=== PATIENT | male | born 1960 | race American Indian/Alaskan Native ===

== ENCOUNTER → 2023-04-27 16:02 | Outpatient (CLI) | payer OTHER, MEDICAID, SELFPAY ==
--- NOTE | 2023-04-27 16:05 | DI.RAD.S_ITS ---
PROCEDURE: XR KNEE LT 3V INDICATIONS: AP/lateral XR for osteoarthritis eval TECHNIQUE: 3 views of the knee were acquired. COMPARISON: None. FINDINGS: Bones: No fractures or dislocations. Moderate tricompartmental osteoarthritis is seen with joint space narrowing, subchondral sclerosis and marginal osteophyte formation more notably in medial femoral tibial compartment. No suspicious bony lesions. Soft tissues: Small suprapatellar joint effusion. No suspicious soft tissue calcifications. IMPRESSION: No acute left knee fracture or dislocation. Moderate tricompartmental osteoarthritis more notably in medial femoral tibial compartment. Small to moderate joint effusion. Dictated by: Garcia Tucker M.D. on 04/27/2023 at 17:31 Approved by: Garcia Tucker M.D. on 04/27/2023 at 17:32
== END ==
LOC: RAD 16:04
PROVIDERS: PCP Family Medicine; Referring Provider Family Medicine; Visit Provider Family Medicine
DX: M17.0 Bilateral primary osteoarthritis of knee (principal); M25.462 Effusion, left knee
CPT/HCPCS: 73562

== ENCOUNTER → 2023-06-15 08:27 | Outpatient (CLI) | payer OTHER, MEDICAID, SELFPAY ==
[2023-06-15 10:05] LABS: Add Manual Diff / Slide Review NO; Basophils Absolute Auto 0 /uL (0-100); Basophils Percent Auto 0.7 % (0-2); Eosinophils Absolute Auto 100 /uL (0-450); Hematocrit 42.8 % (41-53); Hemoglobin 14.7 g/dL (13.5-17.5); Lymphocytes Absolute Auto 800 /uL (1100-4500); Lymphocytes Percent Auto 23.4 % (25-40); Mean Corpuscular HGB Conc 34.4 % (30-36); Mean Corpuscular Hemoglobin 29.8 PG (26-34); Mean Corpuscular Volume 86.7 fL (80-100); Monocytes Absolute Auto 300 /uL (0-900); Neutrophils Absolute Auto 2200 /uL (1500-7000); Neutrophils Percent Auto 64.9 % (50-75); Platelet Count 270 X10^3/uL (150-400); Red Blood Cell Count 4.93 X10^6/uL (4.5-5.9); Red Cell Distribution Width 14.1 % (11.6-14.8); White Blood Cell Count 3.4 X10^3/uL (4.5-11.0)
[2023-06-15 10:19] LABS: Alanine Aminotransferase 13 IU/L (<50); Albumin 3.8 g/dL (3.5-5.0); Albumin Globulin Ratio 1.2 (1.0-2.8); Alkaline Phosphatase 75 U/L (38-126); Aspartate Aminotransferase 19 IU/L (17-59); BUN Creatinine Ratio 13.1 (6-22); Bilirubin Total 0.7 mg/dL (0.2-1.3); Blood Urea Nitrogen 18 mg/dL (9-20); Calcium 8.8 mg/dL (8.4-10.2); Carbon Dioxide 22 mmol/L (22-32); Chloride 109 mmol/L (98-107); Cholesterol 126 mg/dL (140-199); Estimated Glomerular Filt Rate 58 mL/min (>60); Globulin 3.2 g/dL (1.7-4.1); Glucose 90 mg/dL (80-110); HDL Cholesterol 49 mg/dL (40-60); HEMOLYSIS < 15 (0-50); LDL Cholesterol Calculated 64 mg/dL (<100); Potassium 4.8 mmol/L (3.4-5.1); Sodium 139 mmol/L (137-145); Triglycerides 65 mg/dL (35-150)
[2023-06-15 10:43] LABS: Prostate Specific Antigen Scrn 3.23 ng/mL (0.1-4.0)
[2023-06-15 19:47] LABS: HIV 1 & 2 Ab/Ag 4th Gen Combo NEGATIVE (NEGATIVE); Hep C Virus Ab w/Reflex Quant NEGATIVE s/c (NEGATIVE)
== END ==
PROVIDERS: PCP Family Medicine; Referring Provider Family Medicine; Visit Provider Family Medicine
DX: Z11.59 Encounter for screening for other viral diseases (principal); Z11.4 Encounter for screening for human immunodeficiency virus [HIV]; Z53.20 Procedure and treatment not carried out because of patient's decision for unspecified reasons; E87.8 Other disorders of electrolyte and fluid balance, not elsewhere classified; Z13.0 Encounter for screening for diseases of the blood and blood-forming organs and certain disorders involving the immune mechanism; Z12.5 Encounter for screening for malignant neoplasm of prostate
CPT/HCPCS: 36415; 80053; 80061; 85025; 86803; 87389; G0103

== ENCOUNTER → 2023-09-28 15:01 | Outpatient (CLI) | payer OTHER, MEDICAID, SELFPAY ==
[2023-09-28 15:24] LABS: Add Manual Diff / Slide Review NO; Basophils Absolute Auto 0 /uL (0-100); Basophils Percent Auto 0.6 % (0-2); Eosinophils Absolute Auto 100 /uL (0-450); Eosinophils Percent Auto 2.2 % (2-4); Hematocrit 43.4 % (41-53); Hemoglobin 14.8 g/dL (13.5-17.5); Lymphocytes Absolute Auto 1100 /uL (1100-4500); Lymphocytes Percent Auto 21.7 % (25-40); Mean Corpuscular Hemoglobin 28.5 PG (26-34); Mean Corpuscular Volume 83.7 fL (80-100); Monocytes Absolute Auto 500 /uL (0-900); Monocytes Percent Auto 10.4 % (3-14); Neutrophils Absolute Auto 3400 /uL (1500-7000); Neutrophils Percent Auto 65.1 % (50-75); Platelet Count 264 X10^3/uL (150-400); Red Blood Cell Count 5.18 X10^6/uL (4.5-5.9); Red Cell Distribution Width 14.7 % (11.6-14.8); White Blood Cell Count 5.3 X10^3/uL (4.5-11.0)
[2023-09-28 15:40] LABS: Alanine Aminotransferase 17 IU/L (<50); Albumin 3.6 g/dL (3.5-5.0); Albumin Globulin Ratio 1.3 (1.0-2.8); Alkaline Phosphatase 77 U/L (38-126); Aspartate Aminotransferase 20 IU/L (17-59); Bilirubin Total 0.5 mg/dL (0.2-1.3); Blood Urea Nitrogen 17 mg/dL (9-20); Calcium 8.4 mg/dL (8.4-10.2); Carbon Dioxide 22 mmol/L (22-32); Chloride 111 mmol/L (98-107); Estimated Glomerular Filt Rate 55 mL/min (>60); Globulin 2.7 g/dL (1.7-4.1); Glucose 107 mg/dL (80-110); HEMOLYSIS < 15 (0-50); Potassium 4.5 mmol/L (3.4-5.1); Sodium 139 mmol/L (137-145); Total Protein 6.3 g/dL (6.3-8.2)
[2023-09-28 17:39] LABS: Creatinine Urine Random 154.63 mg/dL
[2023-09-28 17:45] LABS: Microalbumin Urine Random 7.6 mg/dL (0-1.6)
== END ==
PROVIDERS: PCP Family Medicine; Referring Provider Family Medicine; Visit Provider Family Medicine
DX: D64.9 Anemia, unspecified (principal); N52.9 Male erectile dysfunction, unspecified
CPT/HCPCS: 36415; 80053; 82043; 82570; 85025

== ENCOUNTER → 2024-06-27 11:54 | Outpatient (CLI) | payer MEDICARE, SELFPAY ==
[2024-06-27 12:36] LABS: Influenza A - CEPHEID Flu A NEGATIVE (NEGATIVE); Influenza B - CEPHEID Flu B NEGATIVE (NEGATIVE); Respiratory Syncytial Virus Negative (Negative)
[2024-06-27 12:37] LABS: COVID-19 CEPHEID 4-PLEX PCR Negative (Negative)
== END ==
PROVIDERS: PCP Family Medicine; Visit Provider Nurse Practitioner Family
DX: R05.1 Acute cough (principal)
CPT/HCPCS: 0241U

== ENCOUNTER → 2024-06-27 12:09 | Outpatient (CLI) | payer MEDICARE, SELFPAY ==
--- NOTE | 2024-06-27 12:11 | DI.RAD.S_ITS ---
PROCEDURE: XR CHEST 2V INDICATIONS: Cough TECHNIQUE: 2 views of the chest were acquired. COMPARISON: None. FINDINGS: Heart, mediastinum and pulmonary vascular: Heart is normal in size and configuration. Mediastinum is unremarkable. Pulmonary vascular is normal. Lungs: Vague 1.8 centimeter in irregular densities seen in the right suprahilar region. Suspect this is calcification in the anterior right 2nd rib. It could indicate an nodule or developing infiltrate. Pleural spaces: Normal-no effusions or pneumothorax. Bones and soft tissues: Normal IMPRESSION: 1.8 centimeter vague density in the right suprahilar region. Please see above. Suggest patient return for AP and shallow oblique views , coned to the right upper lobe , for better evaluation Dictated by: Brooks Green M.D. on 06/28/2024 at 9:28 Approved by: Brooks Green M.D. on 06/28/2024 at 9:30
== END ==
LOC: RAD 12:10
PROVIDERS: PCP Family Medicine; Referring Provider Nurse Practitioner Family; Visit Provider Nurse Practitioner Family
DX: R05.1 Acute cough (principal); R93.89 Abnormal findings on diagnostic imaging of other specified body structures
CPT/HCPCS: 0241U; 71046

== ENCOUNTER → 2024-06-29 10:53 | Outpatient (CLI) | payer MEDICARE, SELFPAY ==
--- NOTE | 2024-06-29 10:54 | DI.RAD.S_ITS ---
PROCEDURE: XR CHEST 3V INDICATIONS: AP Oblique views needed for further eval PNA vs bony abn TECHNIQUE: 2 views of the chest were acquired. COMPARISON: [facility], CR, XR CHEST 2V, 06/27/2024, 11:33. FINDINGS: Surgical changes and devices: None. Lungs and pleura: Lungs are clear. No pleural effusions or pneumothorax. Mediastinum: Mediastinal contours are normal. Heart size is normal. Bones and chest wall: No suspicious bony abnormalities. Soft tissues appear unremarkable. IMPRESSION: No acute cardiopulmonary pathology. Previously described vague density in right suprahilar region is no longer seen likely represent summation artifacts. Dictated by: Garcia Tucker M.D. on 06/29/2024 at 11:26 Approved by: Garcia Tucker M.D. on 06/29/2024 at 11:30
== END ==
LOC: RAD 10:54
PROVIDERS: PCP Family Medicine; Referring Provider Student in an Organized Health Care Education/Training Program; Visit Provider Student in an Organized Health Care Education/Training Program
DX: R93.89 Abnormal findings on diagnostic imaging of other specified body structures (principal)
CPT/HCPCS: 71047

== ENCOUNTER → 2024-07-12 08:30 | Outpatient (CLI) | payer MEDICARE, SELFPAY ==
[2024-07-12 09:17] LABS: Add Manual Diff / Slide Review NO; Basophils Absolute Auto 0 /uL (0-100); Basophils Percent Auto 0.6 % (0-2); Eosinophils Absolute Auto 100 /uL (0-450); Eosinophils Percent Auto 1.8 % (2-4); Hemoglobin 16.2 g/dL (13.5-17.5); Lymphocytes Absolute Auto 900 /uL (1100-4500); Lymphocytes Percent Auto 20.4 % (25-40); Mean Corpuscular HGB Conc 33.7 % (30-36); Mean Corpuscular Hemoglobin 29.4 PG (26-34); Mean Corpuscular Volume 87.1 fL (80-100); Monocytes Absolute Auto 400 /uL (0-900); Monocytes Percent Auto 9.9 % (3-14); Neutrophils Absolute Auto 2900 /uL (1500-7000); Neutrophils Percent Auto 67.3 % (50-75); Platelet Count 251 X10^3/uL (150-400); Red Blood Cell Count 5.51 X10^6/uL (4.5-5.9); White Blood Cell Count 4.3 X10^3/uL (4.5-11.0)
[2024-07-12 09:46] LABS: Alanine Aminotransferase 20 IU/L (<50); Albumin 3.8 g/dL (3.5-5.0); Albumin Globulin Ratio 1.3 (1.0-2.8); Alkaline Phosphatase 90 U/L (38-126); Aspartate Aminotransferase 21 IU/L (17-59); BUN Creatinine Ratio 17.2 (6-22); Bilirubin Total 0.7 mg/dL (0.2-1.3); Blood Urea Nitrogen 22 mg/dL (9-20); Calcium 9.1 mg/dL (8.4-10.2); Carbon Dioxide 21 mmol/L (22-32); Chloride 108 mmol/L (98-107); Cholesterol 136 mg/dL (140-199); Estimated Glomerular Filt Rate > 60 mL/min (>60); Globulin 2.9 g/dL (1.7-4.1); Glucose 105 mg/dL (80-110); HDL Cholesterol 47 mg/dL (40-60); HEMOLYSIS < 15 (0-50); LDL Cholesterol Calculated 77 mg/dL (<100); Sodium 137 mmol/L (137-145); Total Protein 6.7 g/dL (6.3-8.2); Triglycerides 62 mg/dL (35-150)
[2024-07-23 07:41] LABS: Percent Free Testosterone 4.68 % (1.50-4.20); Testosterone Free 17.56 ng/dL (5.00-21.00); Testosterone Total 375.2 ng/dL (264.0-916.0)
== END ==
PROVIDERS: PCP Family Medicine; Referring Provider Family Medicine; Visit Provider Family Medicine
DX: N18.31 Chronic kidney disease, stage 3a (principal); N52.9 Male erectile dysfunction, unspecified; R80.9 Proteinuria, unspecified; Z13.220 Encounter for screening for lipoid disorders
CPT/HCPCS: 36415; 80053; 80061; 84402; 84403; 85025

== ENCOUNTER 2025-01-08 19:22 | Emergency (ER) | payer MEDICARE, SELFPAY ==
[2025-01-08] VITALS (7 sets, daily range): BP systolic 143–166; BP diastolic 83–100; PULSE 76–83; RESP 20–25; TEMP 37; O2SAT 92–97; BMI 35.5
--- NOTE | 2025-01-08 19:36 | EKG_ITS ---
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
--- NOTE | 2025-01-08 19:41 | DI.RAD.S_ITS ---
PROCEDURE: XR CHEST 1V INDICATIONS: Chest Pain TECHNIQUE: One view of the chest was acquired. COMPARISON: [facility], CR, XR CHEST 3V, 06/29/2024, 10:58. [facility], CR, XR CHEST 2V, 06/27/2024, 11:33. FINDINGS: Surgical changes and devices: None. Lungs and pleura: Increased density in the left retrocardiac region, without occlusion of the left hemidiaphragm. There is also probable peribronchovascular density in the right mid to lower lung. Mediastinum: Mediastinal contours appear normal. Heart size is normal. Bones and chest wall: No suspicious bony lesions. Overlying soft tissues appear unremarkable. IMPRESSION: Findings suggestive of consolidation in the right perihilar region and both lower lobes, may present evolving pneumonia. Short-term follow-up erect PA and lateral views may be obtained. Dictated by: Abdoulaye Orlando M.D. on 01/08/2025 at 20:54 Approved by: Abdoulaye Orlando M.D. on 01/08/2025 at 20:56
[2025-01-08 19:48] LABS: Add Manual Diff / Slide Review NO; Hematocrit 47.8 % (41-53); Hemoglobin 16.6 g/dL (13.5-17.5); Lymphocytes Absolute Auto 1100 /uL (1100-4500); Mean Corpuscular HGB Conc 34.7 % (30-36); Mean Corpuscular Hemoglobin 29.4 PG (26-34); Mean Corpuscular Volume 85.0 fL (80-100); Platelet Count 243 X10^3/uL (150-400)
[2025-01-08 19:58] LABS: INR 1.0 (0.9-1.3); Prothrombin Time 11.7 SECONDS (9.4-12.5)
[2025-01-08 19:59] LABS: Alanine Aminotransferase 18 IU/L (<50); Albumin 4.0 g/dL (3.5-5.0); Albumin Globulin Ratio 1.2 (1.0-2.8); Alkaline Phosphatase 84 U/L (38-126); Blood Urea Nitrogen 20 mg/dL (9-20); Calcium 8.9 mg/dL (8.4-10.2); Carbon Dioxide 21 mmol/L (22-32); Chloride 111 mmol/L (98-107); Creatine Kinase 103 U/L (55-170); Estimated Glomerular Filt Rate 60 mL/min (>60); Globulin 3.4 g/dL (1.7-4.1); Glucose 95 mg/dL (70-99); HEMOLYSIS 22 (0-50); Lipase 140 U/L (23-300); Magnesium 2.1 mg/dL (1.6-2.3); Potassium 4.4 mmol/L (3.4-5.1); Sodium 139 mmol/L (137-145); Total Protein 7.4 g/dL (6.3-8.2)
[2025-01-08 20:00] LABS: PTT Partial Thromboplastin Tim 30 SECONDS (25.1-36.5)
[2025-01-08 20:11] LABS: NT-proBNP (BNP-Adult 18+) 82 pg/mL (<125); Troponin I < 0.012 ng/mL (0.01-0.034)
--- NOTE | 2025-01-08 21:32 | PC.NURSE ---
reporting shortness of breath with exertion and with laying flat. minor inspiratory pain
--- NOTE | 2025-01-08 21:47 | ED_ITS ---
HPI - Chest Pain General Chief Complaint: Chest Pain Stated Complaint: Chest pain, SOB, L arm numbing x3days Time Seen by Provider: 01/08/25 21:44 Source: patient Mode of arrival: Ambulatory History of Present Illness HPI narrative: 64-year-old male with no known history of coronary artery disease, complains of 3 days duration left anterior chest discomfort, left arm numbness intermittent, has occasional cough that is dry, no fevers or chills. No recent antibiotic exposure. No history of COPD or asthma or use of inhalers. Denies cardiac risk factors of diabetes, hypertension, hyperlipidemia, smoking, some family history of father who had MO at earlier age. No cardiac stress testing recalled. No history of blood clots to legs or lungs. No history of leg pain or swelling recent. MD complaint: chest pain Related Data Previous Rx's ?Medication ?Instructions ?Recorded Disabled Parking See Rx Instructions .Route 0 05/28/23 .COMPLEX #365 days sildenafil 100 mg tablet See Rx Instructions PO DAILY PRN 07/06/24 sexual activity #30 tabs sodium,potassium,mag sulfates 17.5 See Rx Instructions PO .COMPLEX 07/07/24 gram-3.13 gram-1.6 gram oral soln #354 mL (Suprep Bowel Prep Kit) lisinopril 2.5 mg tablet 2.5 mg PO DAILY #90 tabs 09/11 amoxicillin 875 mg tablet 875 mg PO BID dental infecti on 7 01/08/25 days #14 tabs doxycycline hyclate 100 mg tablet 100 mg PO BID #20 ta bs 01/08/25 Allergies Allergy/AdvReac Type Severity Reaction Status Date / Time No Known Drug Allergies Allergy Verified 12/08/24 14:15 Patient History Medical History Cataracts, bilateral Hearing loss Partial blindness Family History (Updated 12/25/22 @ 14:07 by Nnamdi Zayas MD) Father Cancer Heart disease Stroke Mother Diabetes mellitus Sister Stroke Diabetes mellitus Sister Stroke Social History marital status: pets and animals: No education level: college occupational status: other (retired) alcohol intake: current (rare/occassional) substance use type: does not use during the past year weight has: decreased > 10 lbs well-balanced diet: daily or most days caffeine: Yes eating out: 1-3 times/week Exam Narrative Exam Narrative: GENERAL: Well-developed patient, in mild distress. HEAD: Atraumatic. Normocephalic. EYES: Pupils equal round and reactive. Extraocular motions intact. No scleral icterus. No injection or drainage. ENT: Nose without bleeding, purulent drainage. Throat without erythema, tonsillar hypertrophy or exudate. Airway patent. NECK: Trachea midline. Non tender CARDIOVASCULAR: Regular rate and rhythm without murmurs, gallops, or rubs. RESPIRATORY: Clear to auscultation. Breath sounds equal bilaterally. No wheezes, rales, or rhonchi. GASTROINTESTINAL: Abdomen soft, non-tender, nondistended. EXTREMITIES: No edema or joint tenderness. BACK: Nontender without deformity or crepitance. No flank tenderness. NEURO: AOx3. Motor functions grossly nonfocal. SKIN: No rash or erythema of visible areas Initial Vital Signs Initial Vital Signs: Vital Signs Temperature 98.6 F 01/08/25 19:30 Pulse Rate 83 01/08/25 19:30 Respiratory Rate 20 01/08/25 19:30 Blood Pressure 166/100 H 01/08/25 19:30 Pulse Oximetry 96 01/08/25 19:30 Oxygen Delivery Method Room Air 01/08/25 19:30 Scores HEART Score Heart Score history: Slightly Suspicious Heart Score EKG: Normal Heart Score Age: > or = 65 years old Heart Score risk factors: 1-2 risk factors Heart Score troponin: < or = to normal limit Heart Score Total: 3 Course Orders Ordered: ED Orders 01/08/25 22:05 Troponin I Stat 01/08/25 22:10 Blood Culture Stat Discontinued Medications Aspirin (Aspirin 81 Mg Chew Tab) 324 mg PO NOW ONE Stop: 01/08/25 19:42 Last Admin: 01/08/25 22:22 Dose: 324 mg Documented By: SBF Doxycycline Hyclate (Doxycycline Hyclate 100 Mg Tablet) 100 mg PO NOW ONE Stop: 01/08/25 21:45 Last Admin: 01/08/25 22:21 Dose: 100 mg Documented By: SBF Ceftriaxone Sodium 1,000 mg/ (Sodium Chloride) 100 mls @ 200 mls/hr IV NOW ONE Stop: 01/08/25 21:45 Last Admin: 01/08/25 22:21 Dose: 200 mls/hr Documented By: SBF Vital Signs Vital signs: Vital Signs - 8 hr 01/08/25 22:30 01/08/25 22:30 Pulse Rate 82 Respiratory Rate 25 H Blood Pressure 155/98 H Pulse Oximetry 95 MDM - Chest Pain Lab Data Attestation: I reviewed the patient's lab results. Lab results narrative: White blood cell count 5300, hemoglobin 16.6, platelets adequate. Glucose 95. BUN 20 with creatinine 1.32, serum CO2 21 mildly low, electrolytes normal. Liver functions and lipase normal. Troponin negative/unmeasurable. BNP normal. 01/08/25 19:40 01/08/25 19:40 Labs: Lab Results 01/08/25 01/08/25 Range/Units 19:40 22:05 WBC 5.3 (4.5-11.0) X10^3/uL RBC 5.62 (4.5-5.9) X10^6/uL Hgb 16.6 (13.5-17.5) g/dL Hct 47.8 (41-53) % MCV 85.0 (80-100) fL MCH 29.4 (26-34) PG MCHC 34.7 (30-36) % RDW 14.0 (11.6-14.8) % Plt Count 243 (150-400) X10^3/uL Neut % (Auto) 65.6 (50-75) % Lymph % (Auto) 20.7 L (25-40) % Mckean % (Auto) 11.4 (3-14) % Eos % (Auto) 1.7 L (2-4) % Baso % (Auto) 0.6 (0-2) % Neut # (Auto) 3500 (4145-6917) /uL Lymph # (Auto) 1100 (4061-5497) /uL Mckean # (Auto) 600 (0-900) /uL Eos # (Auto) 100 (0-450) /uL Baso # (Auto) 0 (0-100) /uL PT 11.7 (9.4-12.5) SECONDS INR 1.0 (0.9-1.3) APTT 30 (25.1-36.5) SECONDS Sodium 139 (137-145) mmol/L Potassium 4.4 (3.4-5.1) mmol/L Chloride 111 H (98-107) mmol/L Carbon Dioxide 21 L (22-32) mmol/L BUN 20 (9-20) mg/dL Creatinine 1.32 H (0.66-1.25) mg/dL Estimated GFR 60 (>60) mL/min BUN/Creatinine Ratio 15.2 (6-22) Glucose 95 (70-99) mg/dL Calcium 8.9 (8.4-10.2) mg/dL Magnesium 2.1 (1.6-2.3) mg/dL Total Bilirubin 0.7 (0.2-1.3) mg/dL AST 23 (17-59) IU/L ALT 18 (<50) IU/L Alkaline Phosphatase 84 (38-126) U/L Total Creatine Kinase 103 (55-170) U/L Troponin I < 0.012 < 0.012 (0.01-0.034) ng/mL NT-Pro-B Natriuret Pep 82 (<125) pg/mL Total Protein 7.4 (6.3-8.2) g/dL Albumin 4.0 (3.5-5.0) g/dL Globulin 3.4 (1.7-4.1) g/dL Albumin/Globulin Ratio 1.2 (1.0-2.8) Lipase 140 (23-300) U/L Imaging Data Chest x-ray: Radiologist's Impression: [address] [address] XRay Report Signed Patient: Phuc Douglas Jr MR#: [id number] : 1960 Acct:[id number] Age/Sex: 64 / M Date of Service: 01/08/25 Loc: ED Accession Number: [id number] Procedure: XR chest 1V Ordering Provider: Dc Chu MD PROCEDURE: XR CHEST 1V INDICATIONS: Chest Pain TECHNIQUE: One view of the chest was acquired. COMPARISON: [facility], CR, XR CHEST 3V, 06/29/2024, 10:58. [facility], CR, XR CHEST 2V, 06/27/2024, 11:33. FINDINGS: Surgical changes and devices: None. Lungs and pleura: Increased density in the left retrocardiac region, without occlusion of the left hemidiaphragm. There is also probable peribronchovascular density in the right mid to lower lung. Mediastinum: Mediastinal contours appear normal. Heart size is normal. Bones and chest wall: No suspicious bony lesions. Overlying soft tissues appear unremarkable. IMPRESSION: Findings suggestive of consolidation in the right perihilar region and both lower lobes, may present evolving pneumonia. Short-term follow-up erect PA and lateral views may be obtained. Dictated by: Abdoulaye Orlando M.D. on 01/08/2025 at 20:54 Approved by: Abdoulaye Orlando M.D. on 01/08/2025 at 20:56 ECG Data Attestation: I personally reviewed and interpreted this ECG as follows: Interpretation: 1936, normal sinus rhythm with sinus arrhythmia. Ventricular rate 79. No obvious ST segment elevation or depression changes. CT 184, QRS 78, QTC 399. [facility] Narrative Medical decision making narrative: 64-year-old male with left-sided chest pain, no known CAD, history of hypertension, heart score equals 3. EKG, chest x-ray, labs pending. DDx consider ACS, chest wall discomfort, pneumonia, pulmonary embolus, effusion, early zoster, radiated pain from subdiaphragmatic source, aortic syndrome, other. Chest x-ray suggestive of bibasilar infiltrates. See radiology report. Blood culture, IV ceftriaxone, oral doxycycline. We will add COVID/flu swab. Lab data: White blood cell count 5300, hemoglobin 16.6, platelets adequate. Glucose 95. BUN 20 with creatinine 1.32, serum CO2 21 mildly low, electrolytes normal. Liver functions and lipase normal. Troponin negative/unmeasurable. BNP normal. COVID/flu negative. We will discharge patient on oral antibiotics for community-acquired pneumonia coverage. Oral amoxicillin, oral doxycycline, 10 day course both antibiotics sent to requested pharmacy. Advised to take antibiotics as directed. Recheck advised later this week with regular provider in clinic. Return precautions discussed. Discharged home with family. Discharge Plan Departure Patient Disposition: Home Clinical Impression: Pneumonia Activity Restrictions/Additional Instructions: Left anterior chest pain with some arm discomfort as well. Concerning for cardiac etiology. EKG and serial blood tests did not show any evidence for heart attack at this time. Chest x-ray was suspicious for pneumonia changes per radiologist's report. IV antibiotics initiated, and oral antibiotics initiated, for treatment of community-acquired pneumonia. No oxygen requirement, no respiratory distress, blood pressure and pulse rate normal. We will further treat as an outpatient for now. Antibiotic prescriptions for amoxicillin and for doxycycline antibiotics sent to your pharmacy, take the full 10 day course as prescribed. Consider recheck of your lungs and your chest discomfort symptoms with your regular doctor mid this week. Return to this/nearest emergency department for any change worsening symptoms or any concerns prior. Prescriptions: New amoxicillin 875 mg tablet 875 mg PO BID 7 Days Qty: 14 0RF doxycycline hyclate 100 mg tablet 100 mg PO BID Qty: 20 0RF No Action sildenafil 100 mg tablet See Rx Instructions PO DAILY PRN (Reason: sexual activity) Qty: 30 4RF Rx Instructions: 1/2-1 tab orally daily PRN; administer 30 minutes to 4 hours before activity Disabled Parking See Rx Instructions .ROUTE .COMPLEX Qty: 365 0RF Rx Instructions: I find this patient to be medically disabled and qualified for Disabled Parking as indicated and signed on the accompanying Disabled Parking Application for Individuals lisinopril 2.5 mg tablet 2.5 mg PO DAILY Qty: 90 3RF sodium,potassium,mag sulfates [Suprep Bowel Prep Kit] 17.5-3.13-1.6 gram recon soln See Rx Instructions PO .COMPLEX Qty: 354 0RF Rx Instructions: take as directed by Physician Referrals: Nnamdi Zayas MD [Primary Care Provider, Family Practice] Stand Alone Forms: Patient Portal/API
[2025-01-08] MEDS: DOXYCYCLINE HYCLATE 100 MG TABLET PO (22:21)
[2025-01-08] MEDS: ASPIRIN 81 MG CHEW TAB 324 MG PO (22:22)
[2025-01-08 23:08] LABS: Troponin I < 0.012 ng/mL (0.01-0.034)
== END 2025-01-08 22:42 | disposition home or self-care (01) ==
PROVIDERS: Emergency Provider Emergency Medicine; PCP Family Medicine
DX: J18.9 Pneumonia, unspecified organism (principal); R07.9 Chest pain, unspecified; R20.0 Anesthesia of skin; R05.9 Cough, unspecified
CPT/HCPCS: 36415; 71045; 80053; 82550; 83690; 83735; 83880; 84484; 85025; 85610; 85730; 87040; 93005; 93010; 99284; J0696